=== PATIENT | female | born 1990 | race American Indian/Alaskan Native ===

== ENCOUNTER 2020-03-08 17:51 | Emergency (ER) | payer SELFPAY ==
[2020-03-08 18:07] VITALS: BP 149/97
--- NOTE | 2020-03-08 19:08 | Emergency Department Report ---
ED ENT HPI - General Chief complaint: Sore Throat Stated complaint: SORE THROAT Time Seen by Provider: 03/08/20 19:05 Source: patient Mode of arrival: Ambulatory Limitations: No Limitations - History of Present Illness Initial comments: 29-year-old female with no prior medical history presents to ED with his mother complaining of throat pain 2 days. Patient describes pain as throbbing in nature, 8 out of 10 intensity, nonradiating, localized to his throat. She admits pain to be scratchy in nature. Patient admits dry, nonproductive cough. Patient denies fever/chills nausea/vomiting/abdominal pain/shortness of breath/chest pain/headache. MD complaint: sore throat Severity scale (0 -10): 10 Quality: aching, other (scrathcy) Associated Symptoms: cough. denies: fever, toothache - Related Data Previous Rx's Medication Instructions Recorded Last Taken Type Amoxicillin [Amoxicillin TAB] 875 mg PO BID #14 tablet 03/08/20 Unknown Rx Ibuprofen [Motrin] 600 mg PO Q8H PRN #30 tablet 03/08/20 Unknown Rx Nystas/Diphen/Xyl Visc/Mylanta 15 ml MM Q4H PRN #120 ml 03/08/20 Unknown Rx [Magic Mouthwash] Allergies Allergy/AdvReac Type Severity Reaction Status Date / Time No Known Allergies Allergy Unverified 03/08/20 18:03 ED Dental HPI - General Chief complaint: Sore Throat Stated complaint: SORE THROAT Time Seen by Provider: 03/08/20 19:05 Source: patient Mode of arrival: Ambulatory Limitations: No Limitations - Related Data Previous Rx's Medication Instructions Recorded Last Taken Type Amoxicillin [Amoxicillin TAB] 875 mg PO BID #14 tablet 03/08/20 Unknown Rx Ibuprofen [Motrin] 600 mg PO Q8H PRN #30 tablet 03/08/20 Unknown Rx Nystas/Diphen/Xyl Visc/Mylanta 15 ml MM Q4H PRN #120 ml 03/08/20 Unknown Rx [Magic Mouthwash] Allergies Allergy/AdvReac Type Severity Reaction Status Date / Time No Known Allergies Allergy Unverified 03/08/20 18:03 ED Review of Systems ROS: Stated complaint: SORE THROAT Other details as noted in HPI Comment: All other systems reviewed and negative ED Past Medical Hx - Past Medical History Previous Medical History?: No - Surgical History Additional Surgical History: INTESTINES - Social History Smoking Status: Never Smoker Substance Use Type: None - Medications Home Medications: Home Medications Medication Instructions Recorded Confirmed Last Taken Type Amoxicillin [Amoxicillin TAB] 875 mg PO BID #14 tablet 03/08/20 Unknown Rx Ibuprofen [Motrin] 600 mg PO Q8H PRN #30 tablet 03/08/20 Unknown Rx Nystas/Diphen/Xyl Visc/Mylanta 15 ml MM Q4H PRN #120 ml 03/08/20 Unknown Rx [Magic Mouthwash] ED Physical Exam - General Limitations: No Limitations General appearance: alert, in no apparent distress - Head Head exam: Present: atraumatic, normocephalic - Eye Eye exam: Present: normal appearance Pupils: Present: normal accommodation - ENT ENT exam: Present: mucous membranes moist - Expanded ENT Exam Expanded Mouth exam: Present: normal external inspection Teeth exam: Present: normal inspection Throat exam: Positive: normal inspection, tonsillar erythema. Negative: tonsillomegaly, tonsillar exudate, R peritonsillar mass, L peritonsillar mass - Neck Neck exam: Present: normal inspection, full ROM, lymphadenopathy (Anterior cervical). Absent: tenderness - Respiratory Respiratory exam: Present: normal lung sounds bilaterally. Absent: respiratory distress, wheezes, rales - Cardiovascular Cardiovascular Exam: Present: regular rate, normal rhythm. Absent: systolic murmur, diastolic murmur, rubs, gallop - GI/Abdominal GI/Abdominal exam: Present: soft, normal bowel sounds - Extremities Exam Extremities exam: Present: normal inspection - Back Exam Back exam: Present: normal inspection - Neurological Exam Neurological exam: Present: alert, oriented X3 - Psychiatric Psychiatric exam: Present: normal affect, normal mood - Skin Skin exam: Present: warm, dry, intact, normal color. Absent: rash ED Course Vital Signs 03/08/20 18:05 Temperature 97.8 F Pulse Rate 77 Respiratory 18 Rate Blood Pressure 149/97 O2 Sat by Pulse 98 Oximetry ED Medical Decision Making - Medical Decision Making 29-year-old female presents with acute pharyngitis. ED course: Rapid strep tests ordered rapid strep test negative No fever throughout ED stay. Vital signs stable patient is in no acute or respiratory distress. Discussed the patient that pharyngitis is contagious and to limit sharing spoons and such. Discussed with patient follow-up with primary care physician. Patient verbally states he understands and will comply to follow-up. Discussed with patient if she has any new or worsening symptoms to return to ED. Critical care attestation.: If time is entered above; I have spent that time in minutes in the direct care of this critically ill patient, excluding procedure time. ED Disposition Clinical Impression: Acute bacterial tonsillitis, Pharyngitis Disposition: TO HOME OR SELFCARE Is pt being admited?: No Does the pt Need Aspirin: No Condition: Stable Instructions: Tonsillitis, Pharyngitis, [id number] Additional Instructions: Make sure to follow up with the primary care physician as discussed. Take all your medications as you've been prescribed. If you have any worsening symptoms or develop new symptoms please return to ED immediately. Prescriptions: Amoxicillin [Amoxicillin TAB] 875 mg PO BID #14 tablet Nystas/Diphen/Xyl Visc/Mylanta [Magic Mouthwash] 15 ml MM Q4H PRN #120 ml PRN Reason: Sore Throat Ibuprofen [Motrin] 600 mg PO Q8H PRN #30 tablet PRN Reason: Pain Referrals: [facility] [Outside] - 3-5 Days [facility] [Outside] - 3-5 Days Forms: Work/School Release Form(ED) Time of Disposition: 20:32
== END 2020-03-08 20:43 | disposition home or self-care (01) ==
LOC: ED 17:51
DX: J03.80 Acute tonsillitis due to other specified organisms (principal); B96.89 Other specified bacterial agents as the cause of diseases classified elsewhere; Z79.1 Long term (current) use of non-steroidal anti-inflammatories (NSAID); Z79.2 Long term (current) use of antibiotics; Z79.899 Other long term (current) drug therapy
CPT/HCPCS: 87116; 87430; 99283